=== PATIENT | female | born 1980 | race Two or more races ===

== ENCOUNTER 2025-01-22 14:00 | Outpatient (RCR) | payer MEDICAID, SELFPAY ==
--- NOTE | 2025-01-06 14:13 | PT.OIERPT ---
PT OP Initial Eval Patient Information Outpatient Physical Therapy Treatment Date: 01/06/25 Visit Reasons: Right shoulder pain Medical Diagnosis: M24.811 Treatment Dx #1: R shoulder pain Start of Care: 01/06/25 Date of Onset: 6 months ago Smoking Status Smoking Status: Never smoker Initial Assessment Subjective: Pt is 44 yr old female who reports insidious onset of R shoulder pain x6 months. 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 Increased pain with reaching to into a cabinet and behind the back. She has mild pain sometimes with HH chores with certain movements. PMH: HTN, hernia surgery x2 Imaging: with provider Pt goal: to get rid of the shoulder pain Objective: R shoulder ArOM: Strength: FF: 90 deg 3-/5 limited by pain Abd: 74 deg ER: 90 deg HBB: to R glute with pain Bowie Edgar: positive empty can: positive TTP: mod/high of biceps tendon Assessment: Pt presents with high TTP of R biceps tendon consistent with tendinopathy and possible labral irritation. Pt requires skilled therapy to meet goals and has fair rehab potential. 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 Ind with HEP 2. Improved AROM to at least 130 deg FF, 120 ABd and HBB to L5 3. Decreased TTP of biceps tendon from high to min Treatment Plan ? 1. Manual therapy ? 2. Therex ? 3. Modalities as indicated, moist heat, ice, estim Frequency and Duration: 2x a week for 4 weeks plus the evaluation Certification Dates: 01/06/25 to 04/08/25 Procedure Charges OP PT Eval Mod Complex 30 minutes: Yes
--- NOTE | 2025-01-13 15:15 | PT.ODAYNRPT ---
PT Outpatient Daily Note OP Daily Note Outpatient Physical Therapy Treatment Date: 01/13/25 Visit Reasons: Right shoulder pain Subjective: Same as time of evaluation Objective: See F/S for therex Assessment: Moderate tissue irritability into abduction with AAROM today Plan: Continue per POC Length of Time (minutes) of Treatment: 30 Minutes Procedure Charges Therapeutic Exercise 30 minutes: Yes
--- NOTE | 2025-01-22 14:33 | PT.ODAYNRPT ---
PT Outpatient Daily Note OP Daily Note Outpatient Physical Therapy Treatment Date: 01/22/25 Visit Reasons: Right shoulder pain Subjective: Pt reports shoulder is sore and painful today, still working. Objective: Please see flow sheet for ther ex list. Assessment: Pt demonstrates poor activity tolerance due to pain response. Plan: Continue with POC. Length of Time (minutes) of Treatment: 30 Minutes Procedure Charges Therapeutic Exercise 30 minutes: Yes
== END 2025-01-23 23:59 | disposition home or self-care (01) ==
LOC: CPTX 14:00
PROVIDERS: PCP Nurse Practitioner Family; Referring Provider Nurse Practitioner Family; Visit Provider Nurse Practitioner Family
DX: M25.511 Pain in right shoulder (principal); M24.811 Other specific joint derangements of right shoulder, not elsewhere classified; I10 Essential (primary) hypertension
CPT/HCPCS: 97110; 97162

== ENCOUNTER 2025-02-17 13:30 | Outpatient (RCR) | payer MEDICAID, SELFPAY ==
--- NOTE | 2025-02-05 16:20 | PT.ODAYNRPT ---
PT Outpatient Daily Note OP Daily Note Outpatient Physical Therapy Treatment Date: 02/05/25 Visit Reasons: RIGHT SHOULDER PAIN Subjective: Pt reports R shoulder continues to be painful and difficult to lift OH. Objective: Please see flow sheet for ther ex list. Assessment: Pt demonstrates poor activity tolerance with interventions due to pain response. Plan: Continue with POC. Length of Time (minutes) of Treatment: 30 Minutes Procedure Charges Therapeutic Exercise 30 minutes: Yes
--- NOTE | 2025-02-17 14:20 | PT.ODAYNRPT ---
PT Outpatient Daily Note OP Daily Note Outpatient Physical Therapy Treatment Date: 02/17/25 Visit Reasons: RIGHT SHOULDER PAIN Subjective: Same shoulder pain Objective: See F/S for therex Assessment: High tissue irritability into abduction with AAROM today and high TTP of long head of biceps tendon consistent with tendinopathy Plan: Continue per POC Length of Time (minutes) of Treatment: 30 Minutes Procedure Charges Therapeutic Exercise 30 minutes: Yes
== END 2025-02-22 23:59 | disposition home or self-care (01) ==
LOC: CPTX 13:30
PROVIDERS: PCP Nurse Practitioner Family; Referring Provider Nurse Practitioner Family; Visit Provider Nurse Practitioner Family
DX: M25.511 Pain in right shoulder (principal); M24.811 Other specific joint derangements of right shoulder, not elsewhere classified; I10 Essential (primary) hypertension
CPT/HCPCS: 97110

== ENCOUNTER 2025-02-24 16:01 | Outpatient (RCR) | payer MEDICAID, SELFPAY ==
--- NOTE | 2025-02-24 16:24 | PT.ODS1RPT ---
PT OP Progress/Discharge Note Date of Service: 02/24/25 Progress Note/DC Note Progress Note/Discharge Note: DC Note Patient Information Visit Reasons: RT shoulder pain Service Continue Service or Discharge: Discharge Discharge Date: 02/24/25 Status Subjective: Worse pain today after working yesterday. Worsening pain in the R shoulder since starting therapy. Objective: R shoulder AROM: FF: 40 deg Abd: 40 deg ER: unable Strength: Assessment: Pt has attended the eval and 5 Rx visits with limited progress with therapy goals due to worsening R shoulder pain. She hasn't met goals due to this and is not benefitting from skilled therapy. Pt would benefit from further diagnostic imaging such as MRI of R shoulder. Plan: D/C Procedure Charges Therapeutic Exercise 30 minutes: Yes
== END 2025-03-25 23:59 | disposition home or self-care (01) ==
LOC: CPTX 16:01
PROVIDERS: PCP Nurse Practitioner Family; Referring Provider Nurse Practitioner Family; Visit Provider Nurse Practitioner Family
DX: M25.511 Pain in right shoulder (principal); M24.811 Other specific joint derangements of right shoulder, not elsewhere classified; I10 Essential (primary) hypertension
CPT/HCPCS: 97110

== ENCOUNTER 2025-04-22 20:58 | Emergency (ER) | payer MEDICAID, SELFPAY ==
[2025-04-22 21:00] VITALS: BMI 32.8
[2025-04-22 21:28] VITALS: BP 133/83; PULSE 77; RESP 16; TEMP 37.2; O2SAT 98
--- NOTE | 2025-04-22 21:59 | EDNOTE_ITS ---
ED General RME/HPI General Chief complaint: General Adult/Misc Complain Stated complaint: STUD EARRING STUCK IN EAR TISSUE Time Seen by Provider: 04/22/25 21:43 Arrival date/time: 04/22/25 20:58 RME / HPI RME / HPI narrative: 45-year-old female patient came in for evaluation regarding possible infected embedded earring. Patient noticed it this morning, associated with pain and swelling. Severity of symptoms moderate. Denies any fever. Denies any other complaints no medications taken prior to arrival. Related Data Previous Rx's ?Medication ?Instructions ?Recorded Hydrocodone/Acetaminophen * (NORCO 1 tab PO Q6H PRN AB DOMINAL PAIN 02/15/17 5/325 *) #30 tabs acetaminophen 500 mg tablet 1,000 mg (2 x 500 mg) PO Q 6H PRN 12/19/22 (Tylenol Extra Strength) fever or pain #30 tabs ondansetron HCl 4 mg tablet 4 mg PO TID PRN nausea and 12/19/22 vomiting #20 tabs cephalexin 500 mg capsule 500 mg PO TID 7 days #21 cap s 04/22/25 Allergies Allergy/AdvReac Type Severity Reaction Status Date / Time No Known Allergies Allergy Verified 04/22/25 21:04 Review of Systems Review of Systems Narrative Review of Systems: Review of system reviewed and within normal limits except mentioned in HPI ED Exam Narrative Physical exam: VITAL SIGNS: Reviewed. GENERAL APPEARANCE: Alert and interactive, follows commands, no acute distress, HEAD AND FACE: Non-traumatic. ENT: PERRL, pink conjunctivitis, eyelid no trauma, Mucous membrane moist. Embedded earring left early with redness and puslike drainage NECK: Supple, nontender, no nuchal rigidity. RECTAL: Deferred. GENITAL: Deferred. NEUROLOGICAL: Gross motor function intact sensory function intact, Appropriate for age. MUSCULOSKELETAL: low back nontender, full range of motion. EXTREMITIES: Nontender, full range of motion. SKIN: Color pink, dry, no rash, no lacerations, no abrasions, no contusions. LYMPHATICS: Deferred. Course Quality Measures none Orders Category Date Time Status cephALEXin [Keflex] Med 04/22/25 21:56 Once 500 mg PO X1 ONE Vital Signs Vital signs: Vital Signs Temperature 98.9 F 04/22/25 21:28 Pulse Rate 77 04/22/25 21:28 Respiratory Rate 16 04/22/25 21:28 Blood Pressure 133/83 H 04/22/25 21:28 Pulse Oximetry (%) 98 04/22/25 21:28 Oxygen Delivery Method Room Air 04/22/25 21:28 Discharge Plan Plan Patient Disposition: HOME (Self Care) Discharge Disposition comment: stable Prescriptions/Referrals Prescriptions/Med Rec: New cephalexin 500 mg capsule 500 mg PO TID 7 Days Qty: 21 0RF No Action Hydrocodone/Acetaminophen * (NORCO 5/325 *) 1 TAB tablet 1 tab PO Q6H PRN (Reason: ABDOMINAL PAIN) Qty: 30 0RF acetaminophen [Tylenol Extra Strength] 500 mg tablet 1,000 mg PO Q6H PRN (Reason: fever or pain) Qty: 30 0RF ondansetron HCl 4 mg tablet 4 mg PO TID PRN (Reason: nausea and vomiting) Qty: 20 0RF Referrals: Max (PCP),MD Favio [Primary Care Provider] - In 1 week Problem List Clinical Impression: Infected embedded earring Patient/Caregiver Discharge Instructions Discharge Activity: activity as tolerated Education Materials: ED Foreign Body Soft Tissue Additional Instructions: Thank you for the opportunity for serving you today. You are stable for discharged . You are advised to: Follow-up with your PCP in 1 to 2 days Return to ED for worsening of symptoms Increase oral fluids Take medication as prescribed Try not to use another earring until it completely healed up Print Language: Cypriot Stand Alone Forms: Y[employer]a Award Info., Patient Portal Info Letter PA/BEBETO Supervising Physician PA/BEBETO Supervising Physician: MD Samuel MDM Narrative [facility] hospital course: 45-year-old female patient came in for evaluation regarding possible infected embedded earring. Patient noticed it this morning, associated with pain and swelling. Severity of symptoms moderate. Denies any fever. Denies any other complaints no medications taken prior to arrival. Left earlobe was cleansed with Betadine, and local anesthesia using lidocaine 1% was used around the earring embedded area. Earring was removed without any difficulty. Dressing applied. Patient tolerated the procedure well. Patient received Keflex. Patient appears nontoxic and hemodynamically stable .Decision to discharge the patient. The patient/family was given an opportunity to ask questions and understood their discharge instructions. Discharge instructions specifically included follow up provider and time frame, current and/or new medications and possible side effects, indications for sooner follow up or return to the emergency department, and the expected course of current diagnosis. Patient reports feeling better as well and giving evidence of significant clinical improvement, I believe patient is now a candidate for discharge. Medication Administration(s) Medication Administration History Cephalexin HCl (Cephalexin 250 Mg Capsule) 500 mg PO X1 ONE Stop: 04/22/25 21:57
== END 2025-04-22 22:35 | disposition home or self-care (01) ==
PROVIDERS: Emergency Provider Emergency Medicine; PCP Family Medicine
DX: S00.451A Superficial foreign body of right ear, initial encounter (principal); L08.9 Local infection of the skin and subcutaneous tissue, unspecified; W45.8XXA Other foreign body or object entering through skin, initial encounter
CPT/HCPCS: 99282; A9270